=== PATIENT | female | born 1965 | race Caucasian/White ===

== ENCOUNTER 2023-08-12 16:39 | Emergency (ER) | payer OTHER, SELFPAY ==
[2023-08-12 16:53] VITALS: BP 145/80; PULSE 80; RESP 16; TEMP 36.3; O2SAT 99
--- NOTE | 2023-08-12 17:14 | ED.URI ---
HPI - URI/Sore Throat General Chief Complaint: Upper Respiratory Infection Stated Complaint: Sore Throat Time Seen by Provider: 08/12/23 17:00 Source: patient Mode of arrival: ambulatory Limitations: no limitations History of Present Illness HPI Narrative: Cara is a 4-year-old female patient presenting to clinic today with complaints of a sore throat times 2-3 days. No known fever, chills, body aches, does have slight runny nose and congestion. MD elicited complaint: sore throat and nasal congestion Related Data Home Medications Medication Instructions Recorded Confirmed albuterol sulfate 90 mcg/actuation 90 mcg inhalation DIRECTED 08/12/23 08/12/23 aerosol inhaler (Ventolin HFA) fluticasone propionate 110 110 mcg inhalation DIRECTED 08/12/23 08/12/23 mcg/actuation HFA aerosol inhaler (Flovent HFA) levothyroxine 150 mcg tablet 150 mcg DIRECTED 08/12/23 08/12/23 (Synthroid) lisinopril 20 mg tablet 20 mg DIRECTED 08/12/23 08/12/23 triamterene 37.5 1 cap DIRECTED 08/12/23 08/12/23 mg-hydrochlorothiazide 25 mg capsule Allergies Allergy/AdvReac Type Severity Reaction Status Date / Time amoxicillin [From Augmentin] Allergy Mild Itching Verified 08/12/23 16:59 cefuroxime [From Ceftin] Allergy Mild Itching Verified 08/12/23 16:59 clavulanic acid Allergy Mild Itching Verified 08/12/23 16:59 [From Augmentin] codeine AdvReac Mild Nausea Verified 08/12/23 16:59 Review of Systems Review of Systems: Pertinent positives per HPI. Patient denies any fever, chills, rash, headache, visual changes, dizziness, shortness of breath, chest pain, palpitations, nausea, vomiting, diarrhea, constipation, abdominal pain, or any urinary issues. PMFSH Comments At the time of my signature, I reviewed and agree with the nursing past medical, surgical, social, and family history. There is no relevant family history pertinent to the patient complaint. Exam Narrative: General: Well-developed, well nourished, in no apparent distress Head: Normocephalic, atraumatic Eyes: Pupils equally round and reactive to light bilaterally, EOM intact, sclera and conjunctive clear, no discharge, lids normal Ears: TMs intact and clear, ear canals clear, no drainage, grossly hearing normal. Nose: Nares patent, clear discharge, no inflammation, no sinus tenderness. Mouth: Oral pharynx without lesions or masses, good dentition, MMM. Postnasal drip Neck: Supple, trachea midline, no enlargement of anterior or posterior cervical nodes, no thyroid masses or goiter palpable. Cardio: Regular rate and rhythm, s1 and s2 normal, no murmur appreciated. Resp: Clear to auscultation bilaterally, no rhonchi, rales, wheezing or rubs Course Course Emergency Course: Portions of this record may have been created with voice recognition software. Level of Care: Express Care Visit Vital Signs Vital signs: Vital Signs Temperature 36.3 C L 08/12/23 16:53 Pulse Rate 80 08/12/23 16:53 Respiratory Rate 16 08/12/23 16:53 Blood Pressure 145/80 H 08/12/23 16:53 Pulse Oximetry 99 08/12/23 16:53 Temperature 36.3 C L 08/12/23 16:53 Pulse Rate 80 08/12/23 16:53 Respiratory Rate 16 08/12/23 16:53 Blood Pressure 145/80 H 08/12/23 16:53 Pulse Oximetry 99 08/12/23 16:53 Vital signs reviewed MDM - URI/Sore Throat MDM Narrative Medical decision making narrative: At the time of visit patient is resting comfortably on the exam table. Patient appears to be nontoxic. Strep screen was negative in the clinic today. We will send for culture. Supportive measures were discussed with the patient and they voiced understanding discharge instructions and agrees to treatment plan. Return precautions reviewed Differential Diagnosis Differential diagnosis: Likely upper respiratory infection, otitis media, sinusitis, viral infection, bronchitis, influenza, pharyngitis and other (COVID) Lab Data Labs: Strep Sc
== END 2023-08-12 17:19 | disposition home or self-care (01) ==
PROVIDERS: Emergency Provider Nurse Practitioner Family
DX: J06.9 Acute upper respiratory infection, unspecified (principal); J02.9 Acute pharyngitis, unspecified; Z79.899 Other long term (current) drug therapy
CPT/HCPCS: 87081; 87880; 99213; G0463